=== PATIENT | female | born 1955 | race Caucasian/White ===

== ENCOUNTER 2024-04-14 06:04 | Inpatient (IN) | payer BC, MEDICARE ==
[2024-04-13 10:18] VITALS: BMI 31.1
[2024-04-14] MEDS ORDERED: CEFAZOLIN 2 GM VIAL ONE (06:41)
[2024-04-14] MEDS ORDERED: Bupivacaine/Epinephrine 0.25% 30 ML VIAL ONE (06:42)
[2024-04-14] MEDS ORDERED: fentaNYL 50 mcg/mL 1 mL Vial ONE (07:06)
[2024-04-14] MEDS ORDERED: Rocuronium Bromide 10 MG/ML (10ML VIAL) ONE (07:06)
[2024-04-14] MEDS ORDERED: PROPOFOL 20 ML ONE (07:06)
[2024-04-14] MEDS ORDERED: Lidocaine 1% PF 5 ML VIAL ONE (07:06)
[2024-04-14] MEDS ORDERED: ceFOXitin 1 GM VIAL ONE (07:18)
[2024-04-14] MEDS ORDERED: Dexamethasone 20 MG/5 ML VIAL ONE (07:45)
[2024-04-14] MEDS ORDERED: ePHEDrine Sulfate 50 MG/10 ML VIAL ONE (07:46)
[2024-04-14] MEDS ORDERED: SUGAMMADEX SODIUM 200 MG/2 ML VIAL ONE (09:03)
[2024-04-14] MEDS ORDERED: Glycopyrrolate 0.2 MG/ML 5 ML SYRINGE ONE (09:03)
[2024-04-14] MEDS ORDERED: Ondansetron PF 4 MG/2 ML Vial ONE (09:03)
[2024-04-14] MEDS ORDERED: Naloxone HCl 0.4 mg/ml Vial IVP PRN (09:22)
[2024-04-14] MEDS ORDERED: Dextrose 5% in Water 1,000 ML IV PRN (09:22)
[2024-04-14] MEDS ORDERED: Glucagon 1 MG/ML KIT IM PRN (09:22)
[2024-04-14] MEDS ORDERED: oxyCODONE 5 MG TAB PO PRN (09:22)
[2024-04-14] MEDS ORDERED: Dextrose 50% Abboject 50 ML SYRINGE SLOW IVP PRN (09:22)
[2024-04-14] MEDS ORDERED: hydrALAZINE 20 MG/ML VIAL SLOW IVP PRN (09:22)
[2024-04-14] MEDS ORDERED: Ipratropium/Albuterol 3 ML NEB NEB PRN (09:22)
[2024-04-14] MEDS ORDERED: Promethazine HCl 25 MG/ML VIAL IM PRN (09:22)
[2024-04-14] MEDS ORDERED: Ondansetron PF 4 MG/2 ML Vial IVP PRN (09:22)
[2024-04-14] MEDS: Morphine 4 MG/ML VIAL SLOW IVP PRN (11:29)
[2024-04-14] MEDS: D5 1/2 NS w/20 mEq KCL 1,000 ML IV SCH (11:52)
[2024-04-14] MEDS: traMADol HCl 50 MG TAB PO SCH (13:00)
[2024-04-14] MEDS: Acetaminophen 500 MG TAB PO SCH (16:40)
[2024-04-14] MEDS: Lisinopril 20 MG TAB PO SCH (22:20)
[2024-04-14] MEDS: Pantoprazole DR 40 MG TAB PO SCH (22:25)
[2024-04-14] MEDS: traZODone HCl 50 MG TAB PO SCH (23:07)
[2024-04-15 04:02] LABS: #Basophils 0.01 10x3/uL (0.0-0.2); #Eosinophils 0.01 10x3/uL (0.0-0.5); #Monocytes 0.36 10x3/uL (0.0-1.1); #Neutrophils 3.59 10x3/uL (1.5-8.4); %Basophils 0.2 % (0.0-2.0); %Eosinophils 0.2 % (0.0-6.0); %Lymphocytes 13.4 % (18.0-47.0); %Monocytes 7.8 % (0.0-10.0); Hematocrit 32.3 % (34.9-44.5); Hemoglobin 10.9 g/dL (12.0-15.5); Mean Corpuscular HGB CONC 33.7 g/dL (32.0-36.0); Mean Corpuscular Volume 94.7 fL (81.6-98.3); Mean Platelet Volume 9.1 fL (7.4-10.4); Platelet Count 141 10x3/uL (150-450); Red Blood Cell (RBC) Count 3.41 10x6/uL (3.90-5.03); White Blood Cell (WBC) Count 4.6 10x3/uL (3.5-10.5)
[2024-04-15 04:10] LABS: Anion Gap 11 mmol/L (10-20); BUN (Urea Nitrogen) 16 mg/dL (9.8-20.1); Calc. Creatinine Clearance 75 mL/min (70-130); Calcium 9.5 mg/dL (7.8-10.44); Carbon Dioxide 25 mmol/L (23-31); Chloride 106 mmol/L (98-107); Estimated GFR 73; Glucose 106 mg/dL (80-115); Potassium 4.4 mmol/L (3.5-5.1); Sodium 138 mmol/L (136-145)
[2024-04-15 06:40] VITALS: TEMP 98.1
[2024-04-15 09:01] VITALS: BP 146/81
[2024-04-15] MEDS: Enoxaparin 40 MG (0.4 mL) SYRINGE SC SCH (09:02)
[2024-04-15] MEDS: azaTHIOprine 50 MG TAB PO SCH (09:02)
== END 2024-04-15 11:36 | disposition home or self-care (01) | DRG 331 ==
LOC: CSHTELE 06:04
PROVIDERS: ADMIT Surgery; ATTEND Surgery
PROC: 0DT84ZZ Resection of Small Intestine, Percutaneous Endoscopic Approach (ICD-10-PCS; principal; 2024-04-14)
PROC: 8E0W4CZ Robotic Assisted Procedure of Trunk Region, Percutaneous Endoscopic Approach (ICD-10-PCS; 2024-04-14)
DX: K28.4 Chronic or unspecified gastrojejunal ulcer with hemorrhage (principal); K43.9 Ventral hernia without obstruction or gangrene; Z96.652 Presence of left artificial knee joint; I10 Essential (primary) hypertension; K21.9 Gastro-esophageal reflux disease without esophagitis; D64.9 Anemia, unspecified; E78.5 Hyperlipidemia, unspecified; Z79.899 Other long term (current) drug therapy; Z90.49 Acquired absence of other specified parts of digestive tract; Z98.891 History of uterine scar from previous surgery; G89.29 Other chronic pain; Z79.891 Long term (current) use of opiate analgesic
CPT/HCPCS: 36415; 80048; 85025; 88307; 93005; 93010; 94760; J0694; J1100; J1650; J2272; J2405; J2704; J3010; J3480; J7500; S2900

== ENCOUNTER 2024-07-07 07:08 | Observation (INO) | payer BC, MEDICARE ==
[2024-07-07] MEDS ORDERED: PROPOFOL 20 ML ONE (07:16)
[2024-07-07] MEDS ORDERED: fentaNYL 50 mcg/mL 1 mL Vial ONE (07:16)
[2024-07-07] MEDS ORDERED: Rocuronium Bromide 10 MG/ML (10ML VIAL) ONE (07:17)
[2024-07-07] MEDS ORDERED: Glycopyrrolate 0.2 MG/ML 5 ML SYRINGE ONE (07:17)
[2024-07-07] MEDS ORDERED: Lidocaine 1% PF 5 ML VIAL ONE (07:17)
[2024-07-07] MEDS ORDERED: Bupivacaine/Epinephrine 0.25% 30 ML VIAL ONE (07:32)
[2024-07-07] MEDS ORDERED: CEFAZOLIN 2 GM VIAL ONE (07:58)
[2024-07-07] MEDS ORDERED: ePHEDrine Sulfate 50 MG/10 ML VIAL ONE (08:30)
[2024-07-07] MEDS ORDERED: Ondansetron PF 4 MG/2 ML Vial ONE (09:00)
[2024-07-07] MEDS ORDERED: SUGAMMADEX SODIUM 200 MG/2 ML VIAL ONE (09:00)
[2024-07-07] MEDS ORDERED: Morphine 4 MG/ML VIAL SLOW IVP PRN (09:33)
[2024-07-07] MEDS ORDERED: Naloxone HCl 0.4 mg/ml Vial IVP PRN (09:33)
[2024-07-07] MEDS ORDERED: Dextrose 50% Abboject 50 ML SYRINGE SLOW IVP PRN (09:33)
[2024-07-07] MEDS ORDERED: Ondansetron PF 4 MG/2 ML Vial IVP PRN (09:33)
[2024-07-07] MEDS ORDERED: Promethazine HCl 25 MG/ML VIAL IM PRN (09:33)
[2024-07-07] MEDS ORDERED: Ipratropium/Albuterol 3 ML NEB NEB PRN (09:33)
[2024-07-07] MEDS ORDERED: Dextrose 5% in Water 1,000 ML IV PRN (09:33)
[2024-07-07] MEDS ORDERED: Glucagon 1 MG/ML KIT IM PRN (09:33)
[2024-07-07] MEDS ORDERED: hydrALAZINE 20 MG/ML VIAL SLOW IVP PRN (09:33)
[2024-07-07] MEDS ORDERED: oxyCODONE 5 MG TAB PO PRN (09:33)
[2024-07-07] MEDS: traMADol HCl 50 MG TAB PO PRN (10:42)
[2024-07-07] MEDS: Sodium Chloride 0.9% 1,000 ML IV SCH (10:43)
[2024-07-07 10:58] VITALS: BMI 32.0
[2024-07-07] MEDS: Acetaminophen 500 MG TAB PO SCH (14:15)
[2024-07-07] MEDS: traZODone HCl 50 MG TAB PO SCH (20:43)
[2024-07-07] MEDS: Pantoprazole 40 MG DR.TAB PO SCH (20:43)
[2024-07-07] MEDS: Lisinopril 20 MG TAB PO SCH (20:44)
[2024-07-07] MEDS: Aspirin 81 mg Enteric Coated Tablet PO SCH (20:47)
[2024-07-08 09:04] VITALS: BP 140/77; TEMP 98
[2024-07-08] MEDS: Metoprolol Succinate XL 25 MG ER.TAB PO SCH (09:05)
[2024-07-08] MEDS: Ascorbic Acid 500 mg Chewable Tablet PO SCH (09:05)
[2024-07-08] MEDS: Ferrous Sulfate 325 MG TAB PO SCH (09:05)
[2024-07-08] MEDS: azaTHIOprine 50 MG TAB PO SCH (09:05)
[2024-07-08] MEDS: Enoxaparin 40 MG (0.4 mL) SYRINGE SC SCH (09:06)
[2024-07-08] MEDS: Atorvastatin Calcium 40 MG TAB PO SCH (09:10)
== END 2024-07-08 11:15 | disposition home or self-care (01) ==
LOC: CSHSDC 07:08 → CSHTELE 09:58
PROVIDERS: ADMIT Surgery; ATTEND Surgery
PROC: 0WUF4JZ Supplement Abdominal Wall with Synthetic Substitute, Percutaneous Endoscopic Approach (ICD-10-PCS; principal; 2024-07-08)
DX: K43.2 Incisional hernia without obstruction or gangrene (principal); I10 Essential (primary) hypertension; I25.10 Atherosclerotic heart disease of native coronary artery without angina pectoris; D64.9 Anemia, unspecified; K75.4 Autoimmune hepatitis; Z78.0 Asymptomatic menopausal state; Z87.59 Personal history of other complications of pregnancy, childbirth and the puerperium; Z96.653 Presence of artificial knee joint, bilateral; Z98.890 Other specified postprocedural states; Z79.82 Long term (current) use of aspirin; Z79.899 Other long term (current) drug therapy
CPT/HCPCS: 94760; C1781; J1650; J2405; J2704; J3010; J7030; J7500; S2900